=== PATIENT | male | born 1970 | race African-American/Black ===

== ENCOUNTER 2017-07-13 21:10 | Inpatient (IN) | payer BC ==
[2017-07-13] MEDS: METOPROLOL TART IMMED RELEASE 50 MG TABLET. PO (22:37)
[2017-07-13] MEDS: methylPREDNISolone SOD SUCC PF 40 MG/ML VIAL. IV (22:56)
[2017-07-13] MEDS: ENOXAPARIN 40 MG/0.4 ML SYRINGE. SQ (22:57)
[2017-07-13] MEDS: BUDESONIDE 0.5 MG/2 ML NEBU. NEB (23:00)
[2017-07-13] MEDS ORDERED: NITROGLYCERIN SUBLINGUAL 0.4 MG BOTTLE OF 25. SL (23:00)
[2017-07-13] MEDS ORDERED: AZITHRMYCN 500MG IVPB FOR OMNI 250 ML IV (23:15)
[2017-07-13] MEDS: IPRATRPIUM/ALBUTEROL 0.5/2.5MG 3 ML NEBU. NEB ×2 (23:26→23:30)
[2017-07-13] MEDS: AZITHROMYCIN 500 MG in IV NORMAL SALINE 250ML 250 ML IV (23:35)
[2017-07-13] MEDS: cefTRIAXone IV Push 1 GM VIAL. IVP (23:36)
[2017-07-14 06:02] LABS: BASO % 0 % (0-3); EOS % 0 % (0-3); HEMATOCRIT 39.9 % (39.0-53.0); HEMOGLOBIN 13.2 g/dL (13.0-17.5); LYMPH # 0.6 x10^3/uL (1.0-4.8); LYMPH % 9 % (24-48); MEAN CORPUSCULAR HEMOGLOBIN 30 pg (25-35); MEAN CORPUSCULAR HGB CONC 33 g/dL (31-37); MEAN CORPUSCULAR VOLUME 90 fL (79-100); MONO # 0.2 x10^3/uL (0.0-1.1); MONO % 3 % (0-9); NEUT # 5.9 x10^3uL (1.8-7.7); NEUT % 89 % (31-73); PLATELET COUNT 305 x10^3/uL (140-400); RED BLOOD COUNT 4.42 x10^6/uL (4.30-5.70); RED CELL DISTRIBUTION WIDTH 12.6 % (11.5-14.5); WHITE BLOOD COUNT 6.6 x10^3/uL (4.0-11.0)
[2017-07-14 06:03] LABS: ADD MAN DIFF? YES
[2017-07-14 07:01] LABS: TROPONINI 0.103 ng/mL (0.000-0.055)
[2017-07-14 07:28] LABS: ALBUMIN 3.9 g/dL (3.4-5.0); ALBUMIN/GLOBULIN RATIO 1.3 (1.0-1.7); ALK PHOS 83 U/L (46-116); ALT (SGPT) 36 U/L (16-63); ANION GAP 15 (6-14); AST (SGOT) 48 U/L (15-37); BLOOD UREA NITROGEN 18 mg/dL (8-26); BUN/CREATININE RATIO 14 (6-20); CALCIUM 9.1 mg/dL (8.5-10.1); CARBON DIOXIDE 25 mmol/L (21-32); CHLORIDE 102 mmol/L (98-107); CHOLESTEROL 265 mg/dL (0-200); CREATININE 1.3 mg/dL (0.7-1.3); GFR 71.3; GLUCOSE 200 mg/dL (70-99); HDLC 42 mg/dL (40-60); LDLC 206 mg/dL (0-100); NON-HDL CHOLESTEROL 223 mg/dL (0-129); POTASSIUM 4.7 mmol/L (3.5-5.1); SODIUM 142 mmol/L (136-145); TOTAL BILIRUBIN 0.4 mg/dL (0.2-1.0); TRIGLYCERIDES 85 mg/dL (0-150); VLDLC 17 mg/dL (0-40)
[2017-07-14 07:30] LABS: CHOLESTEROL/HDL RATIO 6.3; CREATINE KINASE 3042 U/L (39-308)
[2017-07-14] MEDS: IPRATRPIUM/ALBUTEROL 0.5/2.5MG 3 ML NEBU. NEB ×4 (07:51→20:09)
[2017-07-14] MEDS: BUDESONIDE 0.5 MG/2 ML NEBU. NEB ×2 (07:51→20:10)
[2017-07-14] MEDS ORDERED: IPRATRPIUM/ALBUTEROL 0.5/2.5MG 3 ML NEBU. NEB (08:00)
[2017-07-14 08:45] LABS: % BANDS 5 % (0-9); % LYMPHS 7 % (24-48); % MONOS 4 % (0-10); % SEGS 84 % (35-66); PLT ESTIMATE ADEQUATE (ADEQUATE)
[2017-07-14] MEDS: IV NORMAL SALINE 1000ML BAG 1,000 ML IV ×4 (10:37→22:16)
[2017-07-14] MEDS: ENOXAPARIN 40 MG/0.4 ML SYRINGE. SQ ×2 (10:38→22:20)
[2017-07-14] MEDS: predniSONE 20 MG TABLET PO (10:39)
[2017-07-14] MEDS: METOPROLOL TART IMMED RELEASE 50 MG TABLET. PO ×2 (10:39→22:18)
[2017-07-14] MEDS: AZITHROMYCIN 250 MG TABLET. PO (10:39)
[2017-07-14] MEDS: LACTOBACILLUS RHAMNOSUS GG 1 CAPSULE. PO ×2 (10:39→22:17)
[2017-07-14] MEDS: PANTOPRAZOLE 40 MG TABLET.DR. PO (10:39)
[2017-07-14] MEDS: LOSARTAN POTASSIUM 50 MG TABLET. PO (10:40)
[2017-07-14 17:36] LABS: CREATINE KINASE 3499 U/L (39-308)
[2017-07-14] MEDS: cefTRIAXone IV Push 1 GM VIAL. IVP (22:17)
[2017-07-15] MEDS: IPRATRPIUM/ALBUTEROL 0.5/2.5MG 3 ML NEBU. NEB ×5 (03:59→19:57)
[2017-07-15] MEDS ORDERED: ALBUTEROL SULFATE 2.5 MG/3 ML NEBU. NEB (04:15)
[2017-07-15] MEDS: ACETAMINOPHEN 325 MG TABLET. PO (04:18)
[2017-07-15] MEDS: guaiFENesin ORAL 200 MG/10 ML LIQUID. PO ×3 (04:18→22:06)
[2017-07-15] MEDS: BUDESONIDE 0.5 MG/2 ML NEBU. NEB ×2 (07:43→19:57)
[2017-07-15] MEDS: METOPROLOL TART IMMED RELEASE 50 MG TABLET. PO ×2 (08:28→22:08)
[2017-07-15] MEDS: LACTOBACILLUS RHAMNOSUS GG 1 CAPSULE. PO ×2 (08:28→22:06)
[2017-07-15] MEDS: PANTOPRAZOLE 40 MG TABLET.DR. PO (08:28)
[2017-07-15] MEDS: AZITHROMYCIN 250 MG TABLET. PO (08:28)
[2017-07-15] MEDS: LOSARTAN POTASSIUM 50 MG TABLET. PO (08:28)
[2017-07-15] MEDS: methylPREDNISolone SOD SUCC PF 40 MG/ML VIAL. IV ×4 (08:29→22:08)
[2017-07-15] MEDS: IV NORMAL SALINE 1000ML BAG 1,000 ML IV (08:38)
[2017-07-15] MEDS: ENOXAPARIN 40 MG/0.4 ML SYRINGE. SQ ×2 (08:38→21:00)
[2017-07-15] MEDS ORDERED: CONTRAST GIVEN MC (08:45)
[2017-07-15] MEDS: IOHEXOL 300 MG/ML 100ML VIAL. IV (09:00)
[2017-07-15 09:12] LABS: ADD MAN DIFF? NO
[2017-07-15 09:22] LABS: BASO % 0 % (0-3); EOS % 0 % (0-3); HEMATOCRIT 40.8 % (39.0-53.0); HEMOGLOBIN 13.5 g/dL (13.0-17.5); LYMPH # 1.7 x10^3/uL (1.0-4.8); LYMPH % 14 % (24-48); MEAN CORPUSCULAR HEMOGLOBIN 30 pg (25-35); MEAN CORPUSCULAR HGB CONC 33 g/dL (31-37); MEAN CORPUSCULAR VOLUME 91 fL (79-100); MONO # 0.7 x10^3/uL (0.0-1.1); MONO % 6 % (0-9); NEUT # 10.2 x10^3uL (1.8-7.7); NEUT % 80 % (31-73); PLATELET COUNT 313 x10^3/uL (140-400); RED BLOOD COUNT 4.47 x10^6/uL (4.30-5.70); RED CELL DISTRIBUTION WIDTH 12.4 % (11.5-14.5); WHITE BLOOD COUNT 12.7 x10^3/uL (4.0-11.0)
[2017-07-15 09:42] LABS: NT-PRO BNP 590 pg/mL (0-124)
[2017-07-15 10:00] LABS: ALBUMIN 3.7 g/dL (3.4-5.0); ALBUMIN/GLOBULIN RATIO 1.1 (1.0-1.7); ALK PHOS 76 U/L (46-116); ALT (SGPT) 63 U/L (16-63); ANION GAP 8 (6-14); AST (SGOT) 70 U/L (15-37); BLOOD UREA NITROGEN 20 mg/dL (8-26); BUN/CREATININE RATIO 17 (6-20); CALCIUM 8.6 mg/dL (8.5-10.1); CARBON DIOXIDE 30 mmol/L (21-32); CHLORIDE 104 mmol/L (98-107); CREATINE KINASE 2744 U/L (39-308); CREATININE 1.2 mg/dL (0.7-1.3); GFR 78.2; GLUCOSE 126 mg/dL (70-99); POTASSIUM 4.2 mmol/L (3.5-5.1); SODIUM 142 mmol/L (136-145); TOTAL BILIRUBIN 0.5 mg/dL (0.2-1.0); TOTAL PROTEIN 7.1 g/dL (6.4-8.2)
[2017-07-15] MEDS ORDERED: FUROSEMIDE 40 MG/4 ML VIAL. IVP (10:15)
[2017-07-15] MEDS: FUROSEMIDE 40 MG/4 ML VIAL. IVP (10:27)
[2017-07-15 10:45] LABS: TROPONINI 0.201 ng/mL (0.000-0.055)
[2017-07-15 11:26] LABS: BILIRUBIN,URINE NEGATIVE (NEG); CLARITY,URINE CLEAR; COLOR,URINE YELLOW; GLUCOSE,URINE NEGATIVE (NEG); NITRITE,URINE NEGATIVE (NEG); PH,URINE 5.5; PROTEIN,URINE NEGATIVE (NEG-TRACE); UROBILINOGEN,URINE 0.2 mg/dL (0.2 mg/dL)
[2017-07-15] MEDS ORDERED: hydrALAZINE 20 MG/ML VIAL. IVP (11:30)
[2017-07-15] MEDS ORDERED: LABETALOL 20 MG/4 ML DISP.SYRIN. IVP (11:30)
[2017-07-15 11:43] LABS: INFLUENZA A PATIENT POSITIVE (NEGATIVE); INFLUENZA B PATIENT NEGATIVE (NEGATIVE); OBC FLU VALID
[2017-07-15 11:54] LABS: BACTERIA,URINE 0 /HPF (0-FEW); BARBITURATES NEG (NEG); BENZODIAZEPINES NEG (NEG); CANNABINOIDS NEG (NEG); COCAINE NEG (NEG); METHADONE NEG (NEG); OPIATES NEG (NEG); PHENCYCLIDINE NEG (NEG); RBC,URINE 0 /HPF (0-2); SQUAMOUS EPITHELIAL CELL,UR OCC /LPF; WBC,URINE OCC /HPF (0-4)
[2017-07-15 11:56] LABS: AMPHETAMINE/METHAMPHETAMINE NEG (NEG); ETHANOL, URINE NEG (NEG)
[2017-07-15 12:01] LABS: BASE EXCESS COOX 0 mmol/L (-3-3); CARBON MONOXIDE 0.6 % (0.0-1.9); FIO2 COOX 50; HCO3 COOX 25 mmol/L (21-28); METHEMOGLOBIN 0.5 % (0.0-1.9); PCO2 COOX 41 mmHg (35-46); PH COOX 7.41 (7.35-7.45); PO2 COOX 119 mmHg (75-108); SAT O2 COOX 98 % (92-99)
[2017-07-15] MEDS: OSELTAMIVIR 75 MG CAPSULE PO ×2 (13:52→22:07)
[2017-07-15] MEDS: LINEZOLID 600 MG TABLET PO (22:06)
[2017-07-15] MEDS: cefTRIAXone IV Push 1 GM VIAL. IVP (22:12)
[2017-07-16] MEDS: methylPREDNISolone SOD SUCC PF 40 MG/ML VIAL. IV ×2 (06:32→13:43)
[2017-07-16 06:58] LABS: ANION GAP 9 (6-14); BLOOD UREA NITROGEN 22 mg/dL (8-26); CALCIUM 8.6 mg/dL (8.5-10.1); CARBON DIOXIDE 31 mmol/L (21-32); CHLORIDE 102 mmol/L (98-107); CREATININE 1.2 mg/dL (0.7-1.3); GFR 78.2; GLUCOSE 196 mg/dL (70-99); MAGNESIUM 2.3 mg/dL (1.8-2.4); POTASSIUM 4.4 mmol/L (3.5-5.1); SODIUM 142 mmol/L (136-145)
[2017-07-16 07:00] LABS: CREATINE KINASE 1302 U/L (39-308)
[2017-07-16] MEDS: IPRATRPIUM/ALBUTEROL 0.5/2.5MG 3 ML NEBU. NEB ×3 (07:38→17:21)
[2017-07-16] MEDS: BUDESONIDE 0.5 MG/2 ML NEBU. NEB (07:38)
[2017-07-16] MEDS: OSELTAMIVIR 75 MG CAPSULE PO (08:35)
[2017-07-16] MEDS: LINEZOLID 600 MG TABLET PO (08:36)
[2017-07-16] MEDS: LACTOBACILLUS RHAMNOSUS GG 1 CAPSULE. PO (08:36)
[2017-07-16] MEDS: METOPROLOL TART IMMED RELEASE 50 MG TABLET. PO (08:36)
[2017-07-16] MEDS: LOSARTAN POTASSIUM 50 MG TABLET. PO (08:36)
[2017-07-16] MEDS: PANTOPRAZOLE 40 MG TABLET.DR. PO (08:36)
[2017-07-16] MEDS: AZITHROMYCIN 250 MG TABLET. PO (08:37)
[2017-07-16] MEDS: ENOXAPARIN 40 MG/0.4 ML SYRINGE. SQ ×2 (08:37→08:41)
[2017-07-16 13:14] LABS: MRSA BY PCR Negative (Negative)
== END 2017-07-16 18:15 | disposition home or self-care (01) | DRG 871 ==
LOC: 2 SOUTH 21:10
PROC: 5A09357 Assistance with Respiratory Ventilation, Less than 24 Consecutive Hours, Continuous Positive Airway Pressure (ICD-10-PCS; principal; 2017-07-15)
DX: A41.9 Sepsis, unspecified organism (principal); J11.00 Influenza due to unidentified influenza virus with unspecified type of pneumonia; J96.01 Acute respiratory failure with hypoxia; Z99.11 Dependence on respirator [ventilator] status; M62.82 Rhabdomyolysis; J44.0 Chronic obstructive pulmonary disease with (acute) lower respiratory infection; I07.1 Rheumatic tricuspid insufficiency; Z68.41 Body mass index [BMI] 40.0-44.9, adult; E86.0 Dehydration; J44.1 Chronic obstructive pulmonary disease with (acute) exacerbation; E11.9 Type 2 diabetes mellitus without complications; E66.9 Obesity, unspecified; E78.5 Hyperlipidemia, unspecified; G47.33 Obstructive sleep apnea (adult) (pediatric); I10 Essential (primary) hypertension; J20.9 Acute bronchitis, unspecified; M60.9 Myositis, unspecified; Z20.828 Contact with and (suspected) exposure to other viral communicable diseases; Z82.49 Family history of ischemic heart disease and other diseases of the circulatory system; Z82.5 Family history of asthma and other chronic lower respiratory diseases; Z83.3 Family history of diabetes mellitus; Z87.01 Personal history of pneumonia (recurrent); Z88.7 Allergy status to serum and vaccine
CPT/HCPCS: 36415; 36600; 71045; 71275; 80048; 80053; 80061; 80307; 81001; 82550; 82805; 83735; 83880; 84484; 85007; 85025; 87641; 87804; 87804-59; 93005; 93306; 94640; 94660; 94760; J0456; J0696; J1650; J1940; J2920; J7030; J7050; J7512; J7620; J7626; Q0144; Q9967